=== PATIENT | male | born 1985 ===

== ENCOUNTER 2016-09-05 06:36 | Emergency (ER) | payer OTHER ==
[2016-09-05 06:47] VITALS: TEMP 98.4
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
[2016-09-05 10:43] VITALS: BP 120/60; PULSE 82; RESP 18; O2SAT 99
--- NOTE | 2016-09-05 11:00 | RAD ---
HISTORY: Midsternal chest wall pain COMPARISON: No prior. TECHNIQUE: Chest PA and lateral FINDINGS: LUNGS: There appears to be minor linear and/or subsegmental atelectasis and or scarring in the left lingular region. PLEURA: No significant pleural effusion identified. No pneumothorax apparent. CARDIOVASCULAR: Normal. OSSEOUS STRUCTURES: No significant abnormalities. VISUALIZED UPPER ABDOMEN: Normal. OTHER FINDINGS: None. IMPRESSION: There appears to be minor linear and/or subsegmental atelectasis and or scarring left lingular region.
== END 2016-09-05 09:32 | disposition home or self-care (01) ==
LOC: H.ER 06:36
DX: R07.89 Other chest pain (principal); V43.52XA Car driver injured in collision with other type car in traffic accident, initial encounter; Y92.410 Unspecified street and highway as the place of occurrence of the external cause